=== PATIENT | male | born 2000 | race Two or more races ===

== ENCOUNTER 2019-07-02 16:44 | Emergency (ER) | payer SELFPAY ==
[~2019-07-02] VITALS: Ht 167.6 cm; Wt 70.0 kg
[~2019-07-02 16:44] MED LIST: ACET325T9 PO; CEPH-264 PO; LACT1CAP19 PO
[2019-07-02 17:26] VITALS: BP 131/67
--- NOTE | 2019-07-02 17:51 | PHYS DOC ---
Past Medical History Past Medical History: No Pertinent History Past Surgical History: No Surgical History Smoking Status: Never Smoker Alcohol Use: None Adult General Chief Complaint Chief Complaint: WOUND RECHECK/SUTURE REMOVAL HPI HPI Patient is a 18 year old male who presents with right foot lesion. Patient reports he been seen here 2 weeks ago, had been put in the hospital. Patient reports he had some procedure done on his foot, with sutures placed him keep your for suture removal. States he has been dressing his wound every 3 days as recommended, states he does not have a primary care came here to check on his wound and for stitches taken out. States his manages a been coming off clean, without blood, without purulence. States he is continued to get better, has been taking for 2 weeks and has 1 week remaining. States he does have some discomfort when he is walking on this.. Denies any fever. Review of Systems Review of Systems Constitutional: Denies fever or chills [] E Musculoskeletal: Denies back pain or joint pain states some pain to bottom of his right foot.[] Integument: Denies rash or skin lesions reports sutures in place to bottom of right foot[] All other systems were reviewed and found to be within normal limits, except as documented in this note. Allergies Allergies Allergies Coded Allergies Type Severity Reaction Last Updated Verified No Known Drug Allergies 06/17/19 No Physical Exam Physical Exam Constitutional: Well developed, well nourished, no acute distress, non-toxic appearance. [] Cardiovascular:Heart rate regular rhythm, no murmur [] Lungs & Thorax: Bilateral breath sounds clear to auscultation [] Skin: Warm, dry, no erythema, no rash. [address] to pad of right foot, distal, just proximal to flanges, approximately 1 cm incision noted transverse to have the foot, with scab intact. Sutures in foot, buried in epidermal tissue. NO sutures noted to be holding sutures closed. No bleeding noted. Extremities: No tenderness, no cyanosis, no clubbing, ROM intact, no edema. Full motion and sensation noted in the digits and foot[] Neurologic: Alert and oriented X 3, normal motor function, normal sensory function, no focal deficits noted. [] Psychologic: Affect normal, judgement normal, mood normal. [] Current Patient Data Vital Signs Vital Signs Date Time Temp Pulse Resp B/P (MAP) Pulse Ox O2 Delivery O2 Flow Rate FiO2 2/15/20 17:26 98.0 96 16 131/67 (88) 99 Room Air 98.0 EKG EKG [] Radiology/Procedures Radiology/Procedures [] Course & Med Decision Making Course & Med Decision Making Pertinent Labs and Imaging studies reviewed. (See chart for details) [With incision may wrestling 2 weeks old, no new injury, sutures removed as they were not holding incision closed. Patient to continue his wound care. Continue to take his antibiotics he was procedure prescribed. Provide information on some local clinics to where patient may follow up] Dragon Disclaimer Dragon Disclaimer This electronic medical record was generated, in whole or in part, using a voice recognition dictation system. Departure Departure Impression: Primary Impression: Encounter for removal of sutures Disposition: HOME, SELF-CARE Condition: STABLE Referrals: NO PCP (PCP) Patient Instructions: Suture Removal Additional Instructions: As we discussed, try to follow up with a local clinic to recheck on your wound. Continue to keep her wound clean and dressed does have been. Continue to take her antibiotics as he had been dropped. There's a clinic at [address] [place] [address], also you can try [facility] at [address] [place] [address] and they can help find places that may help you. Ken Hablemos, intentar a seguir con yessi clinica a evaluar zavala pie. Continue dejar limpio el pies. Jenise los antibioticos. Hay yessi clinica en [place], en [facility], ellos tenga clinica althea. O tambien puede preguntar en oficina de [facility] en [address] [place] [address] y ellos puede bj idea otro clinicas que puede ayudar CATHRYN WALKER APRN Jul 02, 2019 17:51
== END 2019-07-02 17:55 | disposition home or self-care (01) ==
LOC: ER 16:44
DX: L02.611 Cutaneous abscess of right foot (principal)
CPT/HCPCS: 99281